=== PATIENT | male | born 1960 | race Hispanic/Latino ===

== ENCOUNTER 2025-03-27 14:54 | Emergency (ER) | payer BC ==
[~2025-03-27] VITALS: Ht 182.9 cm; Wt 104.3 kg
[2025-03-27 17:14] LABS: APPEARANCE,URINE TURBID (CLEAR); GLUCOSE, URINE (UA) NEGATIVE (NEGATIVE); LEUKOCYTE ESTERASE ,URINE 500 Leu/uL (NEGATIVE); NITRATE,URINE 2+ (NEGATIVE); OCCULT BLOOD,URINE LARGE (NEGATIVE)
[2025-03-27 17:20] LABS: WBC CLUMP MANY /HPF (0-1)
[2025-03-27] MEDS ORDERED: CEFP200T14 PO (17:27)
--- NOTE | 2025-03-27 17:28 | ERN ---
General Chief Complaint: Urinary Catheter Problems Stated Complaint: BELL CATHETER PROBLEM Time Seen by MD: 15:07 History of Present Illness Initial Comments 64-year-old male has a chronic Bell, presents for pain to the Bell. Patient reports that he has had pain with movement of the Bell catheter of the distal tip of the penis. No fevers vomiting flank pains or other concerns. Bell was placed a couple of weeks ago. He is requesting a Bell change. Allergies: Coded Allergies: No Known Drug Allergies (Unverified Allergy, Unknown, 03/27/25) Home Meds Active Scripts Cefpodoxime Proxetil (Cefpodoxime Proxetil) 200 Mg Tablet, 200 MG PO BID for 10 Days, #20 TAB Prov:WOJCIECH WEINER DO 03/27/25 Past Medical History Past Medical History: Hypertension Past Surgical History: None ROS Dictation CONSTITUTIONAL: No chills, no fever, no weakness, no diaphoresis, no malaise. HEAD/FACE: No signs of trauma. EENT: No eye pain, no blurred vision, no tearing, no double vision, no ear pain, no ear discharge, no nose pain, no nasal congestion, no throat pain, no throat swelling, no mouth pain. RESPIRATORY: No cough, no orthopnea, no SOB, no stridor, no wheezing. CARDIOVASCULAR: No chest pain, no edema, no palpitations, no syncope. GASTROINTESTINAL/ABDOMINAL: No abdominal pain, no constipation, no diarrhea, no nausea, no vomiting. GENITOURINARY: No abnormal discharge, no dysuria, no frequent urination, no hematuria. No complaints of pain in the genitals. MUSCULOSKELETAL: No back pain, no gout, no joint pain, no joint swelling, no muscle pain, no muscle stiffness, no neck pain. INTEGUMENTARY: No change in color, no change in hair/nails, no dryness, no lesion, no lumps, no rash. NEUROLOGICAL/PSYCH: No anxiety, not depressed, no emotional problem, no headache, no numbness, no pre-existing deficit, no history of seizures, no tremors, no weakness. HEMATOLOGIC/LYMPHATIC: Not anemic, no history of blood clots, no apparent bleeding, no bruising, glands not swollen. All Systems Negative, Except as Noted. Physical Exam Physical Exam Dictation VITAL SIGNS: Reviewed. GENERAL APPEARANCE: Alert, oriented x3, no acute distress. HEAD AND FACE: Non-traumatic. EYES: PERRL, pink conjunctivas, eyelid no trauma, anterior chamber clear. EARS: Pinnas intact and no signs of trauma or erythema. Ear canals clear and no discharge. TMs no erythema. NOSE: No discharge, no bleeding. OROPHARYNX: Mouth normal, teeth no caries, tongue pink. Pharynx clear, no erythema. Tonsils no exudates, no abscesses noted. Mucous membrane moist. NECK: Supple, non-tender, no thyromegaly, no masses, no JVD, no bruits. BREAST: Deferred. CHEST: No tenderness, no crepitus, no paradoxical movement, no retractions. LUNGS: Clear, well-ventilated, symmetric, no rales, no wheezing, no rhonchi, no stridor, good breath sounds bilaterally. HEART: Regular rate, regular rhythm, no murmur, no gallops. VASCULAR: No peripheral edema. ABDOMEN: Soft, positive bowel sounds, nondistended, no guarding, nontender, no rebound, no masses no hepatomegaly, no splenomegaly, no Root's sign, no hernias. RECTAL: Deferred. GENITAL: Deferred. NEUROLOGICAL: Normal speech, gross motor function intact, gross sensory function intact. MUSCULOSKELETAL: Neck nontender, full range of motion, back nontender, full range of motion. EXTREMITIES: Nontender, full range of motion. SKIN: Color pink, dry, no turgor, no rash, no lacerations, no abrasions, no contusions. LYMPHATICS: Deferred. Results Laboratory and Microbiology Lab and Micro Result Laboratory Tests Test 03/27/25 17:05 Urine Color YELLOW (YELLOW) Urine Appearance TURBID (CLEAR) Urine pH 5.5 (5.0-8.0) Urine Specific [place] 1.022 (1.001-1.031) Urine Protein 70 mg/dL (NEGATIVE) H Urine Glucose (UA) NEGATIVE mg/dL (NEGATIVE) Urine Ketones NEGATIVE mg/dL (NEGATIVE) Urine Occult Blood LARGE (NEGATIVE) H Urine Nitrate 2+ (NEGATIVE) H Urine Bilirubin NEGATIVE mg/dL (NEGATIVE) Urine Urobilinogen 0.2 mg/dL (0.2-1.0) Urine Leukocyte Esterase 500 Leonila/uL (NEGATIVE) H Urine RBC TNTC /HPF (0-1) H Urine WBC TNTC /HPF (0-1) H Urine WBC Clumps (Auto) MANY /HPF (0-1) Urine Transitional Epithelial Cells FEW /HPF (None Seen) Urine Bacteria MANY /HPF (None Seen) MDM CC: Bell irritation Historian: Patient Comorbidities: BPH, hypertension Limitations by social determinants of health: None Differential diagnosis: UTI, mechanical irritation from the Bell, Bell complication, dislodge are stable Vital signs: Stable, remained stable in the ER Clinical exam shows some irritation of the tip of the penis No flank tenderness soft nontender nondistended abdomen. Patient has a Bell catheter exchange. No complications. He reports feeling b julien. He was given a contracts officer laid bag. I suspect the weight of the Bell bag was causing some discomfort He also has a bit of irritation of the tip of the penis. We will recommend zinc oxide and hydrocortisone cream. His urinalysis is dirty as expected, no signs of SIRS sepsis pyelonephritis or significant infection. We will treat with the antibiotics as an outpatient. Patient agrees with this plan. ED Course Orders Procedure Category Date Status Time Urinalysis LAB 03/27/25 Complete W/Microscopic 15:37 Culture Urine JANETH 03/27/25 In Process 17:16 Vital Signs Date Time Temp Pulse Resp B/P (MAP) Pulse Ox O2 Delivery O2 Flow Rate FiO2 03/27/25 16:45 98.4 90 16 151/79 97 Room Air* 0 21 03/27/25 14:56 98.4 94 16 158/86 96 Room Air DX & DISP Disposition: Discharge Departure Impression: Primary Impression: UTI (urinary tract infection) Additional Impression: Complication of Bell catheter Condition: Stable Scripts Cefpodoxime Proxetil (Cefpodoxime Proxetil) 200 Mg Tablet 200 MG PO BID for 10 Days, #20 TAB Prov: WOJCIECH WEINER DO 03/27/25 Additional Instructions: Your Bell catheter was changed here today. For irritation along the penis, you can use 1% hydrocortisone cream or zinc oxide cream. Both of these medications are [id number]. Choose one in apply it multiple times throughout the day for irritation. There was some bacteria in your urinalysis. I have prescribed antibiotics for the bacteria. Please take as prescribed. Please return to the emergency department if you have any concerns. Otherwise continue with your outpatient workup. Referrals: NOEL GARCIA MD (PCP) WOJCIECH WEINER DO Mar 27, 2025 17:28
[2025-03-27 18:06] VITALS: BP 147/76; PULSE 88; RESP 16; TEMP 98.4; O2SAT 96
== END 2025-03-27 18:14 | disposition home or self-care (01) ==
LOC: EDH 14:54
DX: T83.511A Infection and inflammatory reaction due to indwelling urethral catheter, initial encounter (principal); N39.0 Urinary tract infection, site not specified; I10 Essential (primary) hypertension; Y84.6 Urinary catheterization as the cause of abnormal reaction of the patient, or of later complication, without mention of misadventure at the time of the procedure; Y92.89 Other specified places as the place of occurrence of the external cause
CPT/HCPCS: 51701; 51702; 81001; 87086; 87186; 99283; 99284